=== PATIENT | male | born 1985 | race Two or more races ===

== ENCOUNTER 2025-03-25 13:04 | Inpatient (IN) | payer MEDICAID ==
[~2025-03-25] VITALS: Ht 177.8 cm; Wt 107.7 kg
[2025-03-25 13:42] LABS: BASOPHILS % (AUTO) 0.5 % (0-1); EOSINOPHILS % (AUTO) 0.5 % (0-6); HEMATOCRIT 43.4 % (42.0-52.0); HEMOGLOBIN 15.6 g/dl (14.0-17.9); LYMPHOCYTES # (AUTO) 1.4 X10'3 (1.1-4.8); LYMPHOCYTES % (AUTO) 24.5 % (21-51); MEAN CORPUSCULAR HEMOGLOBIN 32.5 PG (27.0-31.0); MEAN CORPUSCULAR HGB CONC 35.9 g/dL (33.0-36.5); MEAN CORPUSCULAR VOLUME 90.5 FL (78-98); MEAN PLATELET VOLUME 9.6 FL (7.4-10.4); MONOCYTES # (AUTO) 0.4 X10'3 (0-0.9); MONOCYTES % (AUTO) 6.2 % (2-12); NEUTROPHILS % (AUTO) 68.3 % (42-75); PLATELET COUNT 147 X10'3 (140-440); RED CELL DISTRIBUTION WIDTH 13.8 % (11.5-14.5); WHITE BLOOD COUNT 5.9 X10'3 (4.5-11.0)
[2025-03-25 14:07] LABS: ALANINE AMINOTRANSFERASE 133 U/L (12-78); ALBUMIN 3.5 G/DL (3.4-5.0); ALKALINE PHOSPHATASE 152 IU/L (46-116); ANION GAP 17 (8-16); ASPARTATE AMINO TRANSFERASE 301 U/L (10-37); BLOOD UREA NITROGEN 28 MG/DL (7-18); BUN/CREATININE RATIO 14.4 (10.0-20.0); CALCIUM 8.2 MG/DL (8.5-10.1); CHLORIDE 99 MMOL/L (99-107); CREATININE 1.94 MG/DL (0.60-1.10); GLUCOSE 221 MG/DL (70-104); LIPASE 115 U/L (16-77); POTASSIUM 3.9 MMOL/L (3.5-5.1); SODIUM 137 MMOL/L (135-145); TOTAL CARBON DIOXIDE 20.6 MMOL/L (24-32); eCRCL 52 ML/MIN; eGFR 39 ML/MIN
--- NOTE | 2025-03-25 14:08 | Physician Documentation ---
History of Present Illness General Chief Complaint: Diabetic Complication Stated Complaint: WANTS TO CHECK BLOOD SUGARS Time Seen by MD: 13:46 Mode of Arrival: POV History of Present Illness Initial Comments The patient is a 39-year-old male with a history of insulin-dependent diabetes and a seizure disorder. He takes 31 units of long-acting insulin and a sliding scale of regular. He is also on levetiracetam. 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 For the past week he has felt a little lightheaded has been suffering from nausea, vomiting and diarrhea. He has not passed any blood. He reports that his glucose levels have been on the low side at home (60s and 70s). The patient is from [place] and came here to work. He was planning on going back to [place] when his symptoms caused him to come here. Medication Reconciliation Allergies: Coded Allergies: alprazolam (Unverified Allergy, Mild, hives, 03/25/25) Review of Systems ROS Constitutional: Denies chills, fatigue, fever, weight gain or weight loss. HEENT: Denies hearing loss, sinus pressure or visual changes. Respiratory: Denies cough, shortness of breath or wheezing. Cardiovascular: Denies chest pain, pain while walking (claudication), edema or palpitations. Gastrointestinal: Nausea, vomiting and diarrhea Genitourinary: Denies painful urination (dysuria), excessive amount of urine (polyuria) or urinary frequency. Metabolic/Endocrine: Denies cold intolerance, heat intolerance, excessive thirst (polydipsia) or excessive hunger (polyphagia). Neurological: Denies dizziness, extremity numbness, extremity weakness, headaches, seizures or tremors. Psychiatric: Denies anxiety or depression. Integumentary: Denies breast discharge, breast lump, hives, mole change(s), rash or skin lesion. Musculoskeletal: Denies back pain, joint pain, joint swelling or neck pain. Hematologic: Denies easily bleeding, easily bruises, lymphedema or issues with blood clots. Immunologic: Denies food allergies or seasonal allergies. Physical Exam Physical Exam Vital Signs: Temperature: 98.1, Source: Oral, Heart Rate: 116, Respiratory Rate: 16, BP: 151/94, Pulse Oximetry: 94, Weight: 107.700 Oxygen Flow Rate: 0 Physical Exam Physical Exam Vitals and nursing note reviewed. Constitutional: General: Patient is awake, alert, oriented x 4 in no acute distress and well appearing. Speech is clear and lucid. Appearance: Normal appearance. Patient is not ill-appearing, toxic-appearing or diaphoretic. HENT: Head: Normocephalic and atraumatic. Mouth/Throat: Mouth: Mucous membranes are moist. Pharynx: Oropharynx is clear. Eyes: General: No scleral icterus. Extraocular Movements: Extraocular movements intact. Pupils: Pupils are equal, round, and reactive to light. Cardiovascular: Rate and Rhythm: Normal rate and regular rhythm. Heart sounds: No murmur heard. Pulmonary: Effort: No respiratory distress. Breath sounds: No wheezing, rhonchi or rales. Abdominal: General: There is no distension. Palpations: There is no fluid wave, hepatomegaly or mass. Tenderness: There is no abdominal tenderness. There is no guarding. Musculoskeletal: General: No swelling or deformity. Skin: Coloration: Skin is not jaundiced. Findings: No erythema or rash. Neurological: Mental Status: Patient is alert. Progress Results/Orders Results/Orders Orders - GARIMA JESUS MD Urinalysis, Cult If Indicated (03/25/25 13:12) Normal Saline 1000ml (Sodium Chloride 10 (03/25/25 15:40) * Bladder Scan / Post Residual (03/25/25 15:37) Page Hospitalist (03/25/25 15:45) Lactic,2hr (03/25/25 15:47) Completed Orders - GARIMA JESUS MD Cbc/Diff (03/25/25 13:12) BMP (03/25/25 13:12) Lipase (03/25/25 13:12) CMP (03/25/25 13:12) LA (03/25/25 14:02) MG (03/25/25 13:25) Vital Signs 03/25/25 13:06 Temp 98.1 Pulse 116 Resp 16 B/P (MAP) 151/94 Pulse Ox 94 O2 Flow Rate 0 Laboratory Tests Test 03/25/25 13:09 03/25/25 13:25 03/25/25 14:12 Glucometer 239 H White Blood Count 5.9 Red Blood Count 4.80 Hemoglobin 15.6 Hematocrit 43.4 Mean Corpuscular Volume 90.5 Mean Corpuscular Hemoglobin 32.5 H Mean Corpuscular Hemoglobin Concent 35.9 Red Cell Distribution Width 13.8 Platelet Count 147 Mean Platelet Volume 9.6 Neutrophils (%) (Auto) 68.3 Lymphocytes (%) (Auto) 24.5 Monocytes (%) (Auto) 6.2 Eosinophils (%) (Auto) 0.5 Basophils (%) (Auto) 0.5 Neutrophils # (Auto) 4.0 Lymphocytes # (Auto) 1.4 Monocytes # (Auto) 0.4 Eosinophils # (Auto) 0.0 Basophils # (Auto) 0.0 CBC Comment Sodium Level 137 Potassium Level 3.9 Chloride Level 99 Carbon Dioxide Level 20.6 L Anion Gap 17 H Blood Urea Nitrogen 28 H Creatinine 1.94 H Estimated GFR/1.73 m2 39 BUN/Creatinine Ratio 14.4 Glucose Level 221 H Calcium Level 8.2 L Magnesium Level 2.1 Total Bilirubin 4.6 H Aspartate Amino Transf (AST/SGOT) 301 H Alanine Aminotransferase (ALT/SGPT) 133 H Alkaline Phosphatase 152 H Total Protein 7.3 Albumin 3.5 Globulin 3.8 Albumin/Globulin Ratio 0.9 L Lipase 115 H Chemistry Comments Lactic Acid Level 2.9 H Medical Decision Making Findings This 39-year-old man with a history of insulin-dependent diabetes and seizure disorder chain to [place] in order to work (he is from [place]). He was working in the heat and felt that he became dehydrated over the past week or so. He shows evidence of acute kidney injury and dehydration. I do not feel he is septic. I am hydrating him and will get him admitted. Departure Disposition: ADMITTED INPATIENT Impression: Primary Impression: JORDON (acute kidney injury) Additional Impressions: Dehydration after exertion Acute hyperglycemia Condition: Stable Referrals: NO PRIMARY CARE PROVIDER (PCP) Signature Scribe Signature: . Attestation: . GARIMA JESUS MD Mar 25, 2025 14:08
[2025-03-25 14:11] LABS: ALBUMIN/GLOBULIN RATIO 0.9 (1.1-1.5); BILIRUBIN,TOTAL 4.6 MG/DL (0.1-1.0); TOTAL PROTEIN 7.3 G/DL (6.4-8.2)
[2025-03-25 14:24] LABS: MAGNESIUM 2.1 MG/DL (1.5-2.4)
[2025-03-25] MEDS ORDERED: HYDROcodone/acetaminophen 5mg/325mg tablet PO PRN (15:55)
[2025-03-25] MEDS ORDERED: HYDROcodone/acetaminophen 10/325mg tab PO PRN (15:55)
[2025-03-25] MEDS ORDERED: magnesium sulf-water 2g/50mL 50 ML IV PRN (15:55)
[2025-03-25] MEDS ORDERED: potassium Cl 20 mEq SR tablet PO PRN (15:55)
[2025-03-25] MEDS ORDERED: magnesium hydroxide 30ml (MOM) UD suspension PO PRN (15:55)
[2025-03-25] MEDS ORDERED: ondansetron 4mg rapidly disintigrating tab PO PRN (15:55)
[2025-03-25] MEDS ORDERED: morphine 2 MG/ML inj. syringe IV PRN ×2 (15:55)
[2025-03-25] MEDS ORDERED: potassium Cl 40MEQ/1/2NS 520ml 520 ML IV PRN (15:55)
[2025-03-25] MEDS ORDERED: acetaminophen 325mg tablet PO PRN ×2 (15:55)
[2025-03-25] MEDS ORDERED: ondansetron/PF 4mg/2ml inj IV PRN (15:55)
[2025-03-25] MEDS ORDERED: mag hydrox/Alum hydrox/simeth 30ml oral suspension PO PRN (15:55)
[2025-03-25] MEDS ORDERED: magnesium sulf-water 4G/100mL 100 ML IV PRN (15:55)
[2025-03-25] MEDS: normal saline 1000ml 1,000 ML IV ONE ×2 (15:59→17:43)
[2025-03-25] MEDS ORDERED: glucagon, human recombinant 1mg kit SUBCUT PRN (16:00)
[2025-03-25] MEDS ORDERED: DEXTROSE 15 GM of carb/4 tabs (each vial/BOTTLE has 4 tablets) PO PRN ×2 (16:00)
[2025-03-25] MEDS ORDERED: dextrose 50%-water 50ml dispensing syringe IV PRN ×2 (16:00)
[2025-03-25] MEDS ORDERED: normal saline 1000ml 1,000 ML IV ONE (16:40)
[2025-03-25] MEDS ORDERED: ringers solution, lacted 1,000 ML IV PRN ×2 (16:45)
[2025-03-25] MEDS: INSULIN LISPRO 100 UNIT/ML INSULN.PEN MULTI-DOSE SQ SCH (16:45)
--- NOTE | 2025-03-25 16:47 | HISTORY AND PHYSICAL ---
History & Physical Providers to CC ~ History of Present Illness Reason for Admit\Complaint: sepsis History of Present Illness Saulo Scott is a 39-year-old male with past medical history of IDDM, hyperlipidemia, seizure disorder who presented to the ED with chief complaint of generalized weakness, lightheadedness, intermittent n/v/d x 1 week. Patient states he came to [place] temporarily for his work. 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 Patient denies prior renal insufficiency, ID/CAD, CVA, cardiac arrhythmia, DVT/PE, or GIB. Patient denies chest pain, palpitations, shortness of breath, abdominal pain, fever, chills, dysuria, alcoholism. Initial diagnostic findings were notable for elevated lactic acid, tachycardia, profound renal insufficiency, transaminitis, with elevated t.bili, elevated ethyl alcohol. Patient is to be admitted for further workups and treatment. Allergies: Coded Allergies: alprazolam (Unverified Allergy, Mild, hives, 03/25/25) Past Medical History Past Medical History IDDM Seizures Hyperlipidemia Past Surgical History Surgical History Comment Denies Past Social History Social History Comment Alcohol: Occasionally Tobacco: Current smoker, 20 pack year history Illicit drug use: Denies Living situation: Lives at home alone ROS ROS Other than positives in HPI, all 14 review of systems are negative Exam Vitals: Vital Signs Date Time Temp Pulse Resp B/P (MAP) Pulse Ox O2 Delivery O2 Flow Rate FiO2 03/25/25 13:06 98.1 116 16 151/94 94 0 General: Generalized weakness, A&Ox 3, NAD HEENT: Normocephalic, PERRLA Neck: Supple, trachea midline, no JVD Chest: Clear to auscultation bilaterally Cardiovascular: RRR, S1&S2 Abdomen: Soft and nontender Extremities: No cyanosis/clubbing/or edema Central Nervous System: CN II-XII intact, no focal deficits Musculoskeletal: No paraspinal muscle tenderness, no muscle spasm Skin: Warm and intact Diagnostic Data Last Recorded Lab Results: 03/25/25 1325 03/25/25 1325 Counseling Services Smoking & Tobacco Cessation: > 10 Minutes Additional Plan # Prerenal JORDON likely 2/2 prolonged dehydration/vasomotor nephropathy # Metabolic acidosis # Alcohol intoxication # Transaminitis -elevated lactic acid, bicarb 20, ketouria, lipase 115, serum LDH 596, Cr 1.94, GFR 39 BUN/Cr 14, elevated ethyl alcohol -t.bili 4.6, ast/alt/alp elevated showing cholestasis pattern, patient denies abdominal pain, no signs of alcohol withdrawal -alcohol withdrawal protocol, thiamine, folic acid, 3L bolus IVF followed by continuous LR, start Zosyn -follow repeat lactic acid, CT abdomen/pelvis w/o contrast for now given JORDON, UA, blood culture, urine lytes # IDDM # HLD # HTN -on home Lantus 31 units, start with 15 unit Lantus and supplemental; hyperglycemic/hypoglycemic protocol -A1c 7.7%, LDL 77, Triglycerides 324, start statin, omega3, amlodipine # Seizure disorder -pending med rec # Nicotine dependence -nicotine patch DVT/VTE prophylaxis: Heparin Code status: Full code I spent a total of 16 minutes on smoking cessation education. I provided extensive counseling regarding smoking cessation. I spent a total of 35 minutes discussing Advanced Care Planning measures with the patient. Advance care planning: Discussed with patient the importance of advance care planning in case of emergent situation. We discussed various resuscitative measures/ ACP with the patient at the time of admission. Patient voiced understanding and patient has decided on a full code status. Date of Service: Mar 25, 2025 Billing Provider: ELÍAS SCHILLING Common Visit Codes: [id number] INP/OBS CARE (HIGH) Secondary Visit Codes: 41914-YTNZW CHNG SMOKING >10MIN, [id number] CARE PLAN 30 MINUTES ELÍAS SCHILLING Mar 25, 2025 16:47
[2025-03-25] MEDS: ringers solution, lacted 1,000 ML IV SCH (16:48)
[2025-03-25] MEDS: CefTRIAXone 2gm/D5W 50ml BAG 50 ML IV ONE (16:48)
[2025-03-25] MEDS: nicotine 14mg patch - 24hr TD ONE (16:49)
--- NOTE | 2025-03-25 17:00 | RADIOLOGY REPORT ---
CHEST RADIOGRAPH Indication: sepsis Technique: Single frontal view of the chest was obtained Comparison: None FINDINGS: Lines and Tubes: None Lungs and Pleura: 8 mm opacity is noted in the right middle lung zone. No focal consolidation. No ef fusion. No pneumothorax. Cardiomediastinal contours: Unremarkable Bones: No acute osseous abnormality. IMPRESSION: No acute cardiopulmonary disease. 8 mm opacity noted in the right middle lung zone, favored to represent a pulmonary vessel, however ca n not exclude pulmonary nodule. Can consider follow-up chest CT if clinically indicated.
[2025-03-25 17:02] LABS: MAGNESIUM 2.1 MG/DL (1.5-2.4); POTASSIUM 3.9 MMOL/L (3.5-5.1)
[2025-03-25 17:04] LABS: HEMOGLOBIN A1C 7.7 % (4.5-6.2)
[2025-03-25 17:06] LABS: HDL CHOLESTEROL 43 MG/DL (35-60); LACTATE DEHYDROGENASE 596 U/L (85-227); LDL CHOLESTEROL 77 MG/DL (50-100)
[2025-03-25 17:15] LABS: CHOLESTEROL 173 MG/DL (0-200); TRIGLYCERIDES 324 MG/DL (20-135)
[2025-03-25] MEDS ORDERED: hydrALAZINE 20mg/ml inj. IV PRN (17:40)
[2025-03-25] MEDS: amLODIPine 5mg tablet PO ONE (17:40)
[2025-03-25] MEDS ORDERED: oxyCODONE IR 5mg (immed. release) tablet PO PRN (17:40)
[2025-03-25 17:48] LABS: BILIRUBIN,URINE SMALL (Neg); CLARITY,URINE CLEAR (Clear); COLOR,URINE YELLOW (Yellow); GLUCOSE, URINE 100 mg/dl (Neg); KETONES,URINE 15 mg/dl (Neg); LEUKOCYTE ESTERASE ,URINE NEGATIVE (Neg); NITRITES, URINE NEGATIVE (Neg); OCCULT BLOOD,URINE LARGE (Neg); PROTEIN,URINE >=300 mg/dl (Neg); UA COLLECTION TYPE VOIDED
--- NOTE | 2025-03-25 17:48 | ELECTROCARDIOGRAPH REPORT ---
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
[2025-03-25 17:54] LABS: HYALINE CASTS 0-3 /LPF (NEGATIVE)
[2025-03-25] MEDS ORDERED: normal saline 1000ml 1,000 ML IV SCH (18:00)
[2025-03-25] MEDS: diatr meglu/diatrizoate 30ml oral sol.-(3 dose) bottle PO SCH (18:00)
[2025-03-25 18:02] LABS: FINE GRANULAR CAST 0-3 /LPF (NEGATIVE)
[2025-03-25 18:06] LABS: AMORPHOUS URATES 2+; BACTERIA,URINE FEW /HPF (Neg); RBC,URINE NONE SEEN /HPF (0-2); SQUAMOUS EPITHELIAL CELL,UR FEW /LPF (FEW); WBC,URINE 0-4 /HPF (0-4)
[2025-03-25 18:07] LABS: MUCUS STRANDS FEW /LPF (Neg)
[2025-03-25 18:09] LABS: CELLULAR CAST 0-4 /LPF (NEGATIVE)
[2025-03-25] MEDS: piperacillin/tazo 3.375gm/50ml 50 ML IV SCH (18:58)
[2025-03-25 19:50] VITALS: BP 125/80; PULSE 102; RESP 20; TEMP 97.9; O2SAT 96
[2025-03-25 19:57] LABS: ETHANOL 275 MG/DL (<10)
[2025-03-25] MEDS: heparin, porcine 5000 units/ml vial SQ SCH (20:00)
[2025-03-25] MEDS: K and/or MAG REPLACEMENT MC SCH (20:00)
[2025-03-25] MEDS ORDERED: LORazepam 1 MG tablet PO PRN (20:25)
[2025-03-25] MEDS ORDERED: haloperidol lactate 5mg/ml inj IM PRN ×2 (20:25→20:35)
[2025-03-25] MEDS ORDERED: LORazepam 2 mg/ml vial IV PRN ×2 (20:25→20:35)
[2025-03-25] MEDS ORDERED: haloperidol 5mg tablet PO PRN ×2 (20:25→20:35)
[2025-03-25] MEDS ORDERED: LEVE500T PO (20:44)
[2025-03-25] MEDS ORDERED: LANTUS SUBCUT (20:44)
[2025-03-25] MEDS ORDERED: GABA-1405 PO (20:44)
[2025-03-25] MEDS ORDERED: INSU100C4 SQ (20:44)
[2025-03-25] MEDS ORDERED: ALOG25TA PO (20:44)
[2025-03-25] MEDS ORDERED: SPIR50TA5 PO (20:44)
[2025-03-25] MEDS ORDERED: LISI20TA28 PO (20:44)
[2025-03-25] MEDS ORDERED: ERGO500041 PO (20:44)
[2025-03-25] MEDS ORDERED: FLUO20CA39 PO (20:44)
[2025-03-25 20:45] VITALS: RESP 16; O2SAT 96
[2025-03-25] MEDS ORDERED: thiamine 100mg/ml 2ml inj. IV SCH (21:00)
[2025-03-25] MEDS: levetiracetam 250mg tablet PO ONE (21:20)
[2025-03-25] MEDS: docusate sod 100mg capsule PO SCH (21:21)
[2025-03-25] MEDS: atorvastatin 20mg tablet PO SCH (21:21)
[2025-03-25] MEDS: thiamine 100mg/ml 2ml inj. IM STA (21:22)
[2025-03-25] MEDS: insulin glargine (Lantus) pen - multi-dose SQ SCH (21:39)
[2025-03-25 22:00] VITALS: BP 111/58; PULSE 101; RESP 18; TEMP 98.2; O2SAT 93
--- NOTE | 2025-03-26 02:39 | RADIOLOGY REPORT ---
Exam: CT CT ABDOMEN PELVIS History: pancreatitis, transaminitis, elevated t.bili, elevated ldh Comparison Study: None Technique: Multidetector spiral CT of the abdomen was performed from lung bases to pubic symphysis. I maging was performed without IV contrast. Axial, coronal and sagittal multiplanar reformats were obta ined from the axial data set by the technologist. Radiation Dose : 1. Abdomen/Pelvis: CTDIvol 32.52 mGy, DLP 1644.65 mGy*cm. Findings: Evaluation of solid organs is limited due to lack of intravenous contrast use. Lung Bases: No acute or significant lung base finding. Normal heart size. No pleural or pericardial effusion. Liver: The liver is normal in size and subsequent lobulated in its surface morphology, suggestive of cirrhotic change. Moderate diffuse hepatic steatosis. No focal lesions. Gallbladder and Biliary Tree: The gallbladder is moderately distended with sludge. Spleen: Unremarkable Pancreas: The pancreas is grossly normal in appearance. Adrenal Glands: Unremarkable Kidneys: Kidneys are grossly normal without calculi or hydronephrosis. Bladder: Grossly unremarkable for degree of distention. Bowel: The stomach is grossly normal in appearance. Small bowel and colon are normal in caliber and d istribution. The appendix is normal. Ascites: Absent Lymphadenopathy: No mesenteric, retroperitoneal or periportal lymphadenopathy. Abdominal Wall and Mesentery: Unremarkable. Vasculature: The visualized abdominal aorta is normal in size and caliber. Atherosclerotic vascular c alcifications. Evaluation of abdominal and pelvic vessels is limited due to lack of intravenous contr ast. Pelvic Organs: Unremarkable Musculoskeletal: No aggressive focal bony lesions, acute fractures or dislocation. IMPRESSION: 1. No acute abdominal or pelvic findings. 2. Hepatic steatosis and cirrhotic hepatic morphology. 3. Gallbladder distention and sludge. Radiation optimization: All CT scans at this facility use at least one of these dose optimization erika hniques: automated exposure control mA and/or kV adjustment per patient size (includes targeted exam s where dose is matched to clinical indication) or iterative reconstruction.
[2025-03-26] MEDS: thiamine 100mg/ml 2ml inj. IV SCH (05:42)
[2025-03-26 06:00] VITALS: BP 103/61; PULSE 90; RESP 19; TEMP 97.6; O2SAT 95
[2025-03-26 06:20] LABS: BASOPHILS % (AUTO) 0.2 % (0-1); EOSINOPHILS # (AUTO) 0.1 X10'3 (0-0.9); EOSINOPHILS % (AUTO) 2.6 % (0-6); HEMATOCRIT 38.2 % (42.0-52.0); HEMOGLOBIN 13.3 g/dl (14.0-17.9); LYMPHOCYTES # (AUTO) 0.8 X10'3 (1.1-4.8); LYMPHOCYTES % (AUTO) 18.8 % (21-51); MEAN CORPUSCULAR HEMOGLOBIN 31.6 PG (27.0-31.0); MEAN CORPUSCULAR HGB CONC 34.9 g/dL (33.0-36.5); MEAN CORPUSCULAR VOLUME 90.6 FL (78-98); MEAN PLATELET VOLUME 9.8 FL (7.4-10.4); MONOCYTES # (AUTO) 0.3 X10'3 (0-0.9); MONOCYTES % (AUTO) 6.6 % (2-12); NEUTROPHILS # (AUTO) 3.2 X10'3 (1.8-7.7); NEUTROPHILS % (AUTO) 71.8 % (42-75); PLATELET COUNT 102 X10'3 (140-440); RED BLOOD COUNT 4.22 X10'6 (4.70-6.10); RED CELL DISTRIBUTION WIDTH 13.3 % (11.5-14.5); WHITE BLOOD COUNT 4.4 X10'3 (4.5-11.0)
[2025-03-26] MEDS: folic acid 1mg/0.2ml inj IV SCH (07:19)
[2025-03-26] MEDS: multivitamins, therapeutics tablet PO SCH (07:19)
[2025-03-26] MEDS: nicotine 14mg patch - 24hr TD SCH (07:20)
[2025-03-26] MEDS: levetiracetam 250mg tablet PO SCH (07:23)
[2025-03-26 07:30] LABS: ALANINE AMINOTRANSFERASE 118 U/L (12-78); ALBUMIN 2.5 G/DL (3.4-5.0); ALBUMIN/GLOBULIN RATIO 0.8 (1.1-1.5); ALKALINE PHOSPHATASE 201 IU/L (46-116); ANION GAP 10 (8-16); ASPARTATE AMINO TRANSFERASE 256 U/L (10-37); BILIRUBIN,TOTAL 3.4 MG/DL (0.1-1.0); BLOOD UREA NITROGEN 25 MG/DL (7-18); BUN/CREATININE RATIO 18.4 (10.0-20.0); CALCIUM 7.6 MG/DL (8.5-10.1); CHLORIDE 103 MMOL/L (99-107); CREATININE 1.36 MG/DL (0.60-1.10); GLUCOSE 143 MG/DL (70-104); MAGNESIUM 1.9 MG/DL (1.5-2.4); POTASSIUM 3.3 MMOL/L (3.5-5.1); SODIUM 137 MMOL/L (135-145); TOTAL CARBON DIOXIDE 23.8 MMOL/L (24-32); TOTAL PROTEIN 5.6 G/DL (6.4-8.2); eCRCL 75 ML/MIN; eGFR 58 ML/MIN
[2025-03-26] MEDS ORDERED: levetiracetam 250mg tablet PO SCH (08:00)
[2025-03-26] MEDS ORDERED: CefTRIAXone 2gm/D5W 50ml BAG 50 ML IV SCH (08:00)
[2025-03-26 08:35] LABS: PROTHROMBIN TIME 10.4 SECONDS (9.0-12.0)
[2025-03-26 09:04] LABS: TOTAL PROTEIN,URINE RANDOM 242.8 MG/DL
[2025-03-26 10:00] VITALS: BP 114/63; PULSE 93; RESP 14; TEMP 97.9; O2SAT 94
[2025-03-26] MEDS: potassium Cl 20 mEq SR tablet PO PRN (10:22)
[2025-03-26] MEDS: ringers solution, lacted 1,000 ML IV ONE ×2 (10:23→15:18)
[2025-03-26] MEDS: ringers solution, lacted 1,000 ML IV SCH (10:23)
--- NOTE | 2025-03-26 12:59 | PROGRESS NOTE ---
Daily Progress Note Providers to CC ~ Antibiotic Timeout Antibiotic Ordered?: Yes Subjective No acute events overnight. Patient examined at bedside. No new complaints, not in acute distress. Patient denies chest pain, sob, palpitations, abdominal pain, n/v/d. Vss, labs notable for normalized lactic acid, Cr downtrending, transaminitis improving. CT shows cirrhosis, gallbladder decision and no acute abdominal or pelvic findings, no ascites. MRCP to follow. 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: CN II-XII intact, no focal deficits Musculoskeletal: No paraspinal muscle tenderness, no muscle spasm Skin: Warm and intact Coagulation Studies Laboratory Tests Test 03/26/25 07:55 Prothrombin Time 10.4 SECONDS (9.0-12.0) INR International Normalized Ratio 1.0 INR Coagulation Comments Problem\Assessment\Plan # Prerenal JORDON likely 2/2 prolonged dehydration/vasomotor nephropathy # Metabolic acidosis # Alcohol intoxication # Cirrhosis # Transaminitis -elevated lactic acid, bicarb 20, ketouria, lipase 115, serum LDH 596, Cr 1.94, GFR 39 BUN/Cr 14, elevated ethyl alcohol -t.bili 4.6, ast/alt/alp elevated showing cholestasis pattern, patient denies abdominal pain, no signs of alcohol withdrawal -alcohol withdrawal protocol, thiamine, folic acid, 3L bolus IVF followed by continuous LR, start Zosyn -follow repeat lactic acid, CT abdomen/pelvis w/o contrast for now given JORDON, UA, blood culture, urine lytes, hepatitis panel -03/26: Cr downtrending, transaminitis improving, CT shows cirrhosis, gallbladder decision and no acute abdominal or pelvic findings, no ascites; follow MRCP # IDDM # HLD # HTN -on home Lantus 31 units, start with 15 unit Lantus and supplemental; hyperglycemic/hypoglycemic protocol -A1c 7.7%, LDL 77, Triglycerides 324, start statin, omega3, amlodipine # Seizure disorder -continue home Keppra 1000mg bid # Nicotine dependence -nicotine patch DVT/VTE prophylaxis: Heparin Code status: Full code Date of Service: Mar 26, 2025 Billing Provider: ELÍAS SCHILLING Common Visit Codes: [id number] INP/OBS CARE(HIGH) ELÍAS SCHILLING Mar 26, 2025 12:59
--- NOTE | 2025-03-26 13:51 | RADIOLOGY REPORT ---
INDICATION: transaminitis, gallbladder sludge/distention, cirrhosis TECHNIQUE: Multiple real-time sonographic images of the abdomen were obtained. COMPARISON: CT abdomen/ pelvis 03/25/2025 FINDINGS: Liver demonstrates increased coarse echogenicity and a nodular contour. Hepatopetal flow in the wade l vein. The liver measures 16.5 cm. No intrahepatic biliary ductal dilatation is noted. The gallbladder is partially distended with intraluminal sludge. No discrete gallstones are seen. Th e gallbladder wall thickness measures 4 mm. No evidence of pericholecystic fluid. Negative sonograph ic martin's sign. The common duct measures 0.7 cm and is unremarkable. The right kidney measures 11.3 cm. No hydronephrosis. The pancreas is not well visualized due to obscuration from bowel gas. The visualized portions of the IVC and aorta are grossly unremarkable. IMPRESSION: 1. Biliary sludge and mild nonspecific gallbladder wall thickening (4 mm). There is no cholelithiasis and no other signs to suggest cholecystitis. 2. Borderline common bile duct dilation. This may be upper limits of normal with obstruction consider ed less likely. Clinical correlation recommended. 3. Hepatic steatosis and cirrhotic hepatic morphology.
[2025-03-26 18:00] VITALS: BP_SYST 130; BP_SYST 88; BP_DIAS 47; BP_DIAS 83; PULSE 106; PULSE 90; RESP 16; RESP 20; TEMP 100.1; TEMP 98.3; O2SAT 98; O2SAT 99
[2025-03-26 20:00] VITALS: RESP 15; O2SAT 96
[2025-03-26] MEDS: insulin glargine (Lantus) pen - multi-dose SQ SCH (20:44)
[2025-03-26 22:00] VITALS: BP 117/72; PULSE 86; RESP 16; TEMP 97.6; O2SAT 94
[2025-03-27 06:00] VITALS: BP 120/69; PULSE 79; RESP 16; TEMP 97.7; O2SAT 93
[2025-03-27 06:22] LABS: BASOPHILS % (AUTO) 0.3 % (0-1); EOSINOPHILS # (AUTO) 0.2 X10'3 (0-0.9); EOSINOPHILS % (AUTO) 5.7 % (0-6); HEMATOCRIT 37.2 % (42.0-52.0); HEMOGLOBIN 13.1 g/dl (14.0-17.9); LYMPHOCYTES % (AUTO) 27.6 % (21-51); MEAN CORPUSCULAR HEMOGLOBIN 32.3 PG (27.0-31.0); MEAN CORPUSCULAR HGB CONC 35.2 g/dL (33.0-36.5); MEAN CORPUSCULAR VOLUME 91.9 FL (78-98); MEAN PLATELET VOLUME 9.9 FL (7.4-10.4); MONOCYTES # (AUTO) 0.2 X10'3 (0-0.9); MONOCYTES % (AUTO) 6.6 % (2-12); NEUTROPHILS # (AUTO) 2.1 X10'3 (1.8-7.7); NEUTROPHILS % (AUTO) 59.8 % (42-75); PLATELET COUNT 93 X10'3 (140-440); RED BLOOD COUNT 4.05 X10'6 (4.70-6.10); RED CELL DISTRIBUTION WIDTH 13.4 % (11.5-14.5); WHITE BLOOD COUNT 3.5 X10'3 (4.5-11.0)
[2025-03-27 06:50] LABS: ALANINE AMINOTRANSFERASE 87 U/L (12-78); ALBUMIN 2.2 G/DL (3.4-5.0); ALKALINE PHOSPHATASE 154 IU/L (46-116); ANION GAP 7 (8-16); ASPARTATE AMINO TRANSFERASE 144 U/L (10-37); BILIRUBIN,TOTAL 4.8 MG/DL (0.1-1.0); BLOOD UREA NITROGEN 16 MG/DL (7-18); BUN/CREATININE RATIO 13.3 (10.0-20.0); CALCIUM 7.4 MG/DL (8.5-10.1); CHLORIDE 106 MMOL/L (99-107); GLUCOSE 114 MG/DL (70-104); MAGNESIUM 1.6 MG/DL (1.5-2.4); POTASSIUM 3.6 MMOL/L (3.5-5.1); SODIUM 140 MMOL/L (135-145); TOTAL CARBON DIOXIDE 26.9 MMOL/L (24-32); eCRCL 84 ML/MIN; eGFR 67 ML/MIN
[2025-03-27 06:56] LABS: ALBUMIN/GLOBULIN RATIO 0.8 (1.1-1.5)
[2025-03-27 10:00] VITALS: BP 125/83; PULSE 74; RESP 16; TEMP 98.3; O2SAT 96
--- NOTE | 2025-03-27 11:50 | RADIOLOGY REPORT ---
MRI Abdomen, without IV Contrast Exam Date: 03/27/2025 09:51 AM Comparison: CT dated 03/25/2025 History: dilated CBD, elevated lipase, cholestasis pattern Technique: Axial and coronal T2 fat sat images obtained. Findings: Liver: Nodular hepatic contour suggestive of hepatic cirrhosis. Spleen: Unremarkable. Pancreas: The pancreas is normal in appearance without focal lesions. Gallbladder and ducts: Gallbladder is normal in appearance. The cystic duct, right and left hepatic d ucts, common hepatic duct, and common bile ducts are unremarkable. The pancreatic duct is within nor mal limits. Adrenal glands: Unremarkable. Kidneys: Normal enhancement without suspicious lesions or hydronephrosis. Visualized bowel: Grossly unremarkable. Vasculature: Numerous upper abdominal varices are present suggestive of portal hypertension. Lymphadenopathy: No evidence for lymphadenopathy. Ascites: Absent. Musculoskeletal: Bone marrow signal is normal. IMPRESSION: Extremely limited examination as only axial and coronal T2 sequences performed. Findings are suggestive of hepatic cirrhosis and portal hypertension. Gallbladder and common bile duct appear within normal limits.
[2025-03-27] MEDS ORDERED: ATOR20TA66 PO (12:23)
[2025-03-27] MEDS ORDERED: NOR5T PO (12:23)
[2025-03-27] MEDS ORDERED: LANTUS SUBCUT (12:23)
[2025-03-27] MEDS ORDERED: thiamine tablet PO (12:23)
[2025-03-27] MEDS ORDERED: FOLI1TAB27 PO (12:23)
[2025-03-27] MEDS ORDERED: PROP10TA10 PO (13:29)
[2025-03-27] MEDS: propranolol 10mg tablet PO ONE (14:02)
--- NOTE | 2025-03-27 14:39 | DISCHARGE SUMMARY ---
Discharge Summary Providers to CC ~ Discharge Summary Admission Diagnosis: JORDON Hospital Course DATE OF ADMISSION: 03/25/25 DATE OF DISCHARGE: 03/27/25 Discharge Diagnosis\Comment: Prerenal JORDON likely 2/2 dehydration/vasomotor nephropathy SIRS with acute organ dysfunction- POA Nephrotic syndrome Diabetic nephropathy Metabolic acidosis Alcohol intoxication Cirrhosis Portal hypertension Transaminitis Hyperglycemia IDDM Uncontrolled Diabetes HLD HTN Class I obesity Seizure disorder Nicotine dependence Vasomotor nephropathy- ruled in CBD obstruction- ruled out Operations\Procedures: None Consultants: None Complications: None Condition on DC: Stable New Medications: Lisinopril (Lisinopril) 2.5 Mg Tablet 1 TAB PO DAILY for 30 Days, #30 TAB 0 Refills Atorvastatin Calcium (Atorvastatin Calcium) 20 Mg Tablet 20 MG PO HS for 30 Days, #30 TAB Folic Acid* (Folic Acid*) Y Tab 1 MG PO DAILY for 30 Days, #30 TAB Propranolol Hcl* (Inderal*) 10 Mg Tablet 10 MG PO BID for 30 Days, #60 TAB [thiamine tablet] () 100 MG TABLET 100 MG PO DAILY for 30 Days, #30 Changed Medications: Insulin Glargine,Hum.rec.anlog* (Lantus*) 100 Unit/1 Ml Vial 15 UNITS SUBCUT HS for 30 Days, #5 ML (Changed from: 24 UNITS) Continued Medications: Alogliptin Benzoate (Nesina) 25 Mg Tablet 1 TAB PO DAILY for 30 Days, #30 TAB 0 Refills Ergocalciferol (Vitamin D2) (Vitamin D2) 1,250 Mcg (58288 Unit) Capsule 1 CAP PO Q7D for 28 Days, #4 CAP 0 Refills Fluoxetine Hcl* (Prozac*) 20 Mg Capsule 2 CAP PO DAILY for 30 Days, #30 CAP Gabapentin (Gabapentin) 600 Mg Tablet 0.5 TAB PO HS for 30 Days, #90 TAB 0 Refills Insulin Aspart (Novolog) 100 Unit/Ml Cartridge 100 UNIT SQ, UNIT Levetiracetam (Levetiracetam) 500 Mg Tablet 2 TAB PO Q12H for 30 Days, #60 TAB 0 Refills Discontinued Medications: Spironolactone (Spironolactone) 50 Mg Tablet 1 TAB PO DAILY for 30 Days, #30 TAB 0 Refills Discharge Summary: History of Present Illness Saulo Scott is a 39-year-old male with past medical history of IDDM, hyperlipidemia, seizure disorder who presented to the ED with chief complaint of generalized weakness, lightheadedness, intermittent n/v/d x 1 week. Patient states he came to [place] temporarily for his work. 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 Patient denies prior renal insufficiency, NE/CAD, CVA, cardiac arrhythmia, DVT/PE, or GIB. Patient denies chest pain, palpitations, shortness of breath, abdominal pain, fever, chills, dysuria, alcoholism. Initial diagnostic findings were notable for elevated lactic acid, tachycardia, profound renal insufficiency, transaminitis, with elevated t.bili, elevated ethyl alcohol. Patient is to be admitted for further workups and treatment. Hospital Course Initial diagnostic findings were notable for transaminitis with elevated t.bili, elevated lactic acid, lipase 115U/L, elevated serum LDH but less than 3x upper limit normal, severe renal insufficiency without known history of CKD, elevated ethyl alcohol level, hyperglycemia with serum glucose of 221 mg/dL, bicarb 20 mmol/L, sinus tachycardia in 110s. Pertinent negative findings were normal INR, no hypoglycemia, no leukocytosis, afebrile, unremarkable hemogram, negative urinaylsis for urinary tract infection, negative chest x-ray for acute cardiopulmonary disease, negative physical assessment of abdomen. CT abdomen/pelvis w/o contrast was done due to severe kidney injury on presentation. CT findings were notable for suspicion of cirrhosis, gallbladder distention and sludge, without acute abdominal or pelvic findings including hydronephrosis. Patient was treated with bolus intravenous lactated ringer followed by continuous fluids, empirical antibiotics, and insulin. Patient was started on alcohol withdrawal protocol and seizure precaution. A subsequent abdominal ultrasound reveales biliary sludge, mild nonspecific gallbladder wall thickening, and mild common bile duct dilation without evidence of cholelithiasis or other signs to suggest cholecystitis. Hence, patient underwent MRCP which revealed hepatic cirrhosis and portal hypertension with normal appear ing gallbladder and common bile duct along with unremarkable cystic duct, right and left hepatic ducts, common hepatic duct, pancreatic duct. Patient did not experience previously reported abdominal pain, nausea, vomiting upon presentation to the ED and tolerated diet well. Patient did not experience further complications throughout the entire hospital stay and made a good recovery. Patient was seen and examined on the day of discharge. On day of discharge, vss and labs notable for findings consistent with cirrhosis, normalized lactic acid, improving acute kidney injury. Preliminary blood cultures remain negative until the day of discharge and hepatitis panel pending. All labs, diagnostic workups, discharge plan discussed with patient in details during visit before discharge. All questions and concerns answered to the best of my professional knowledge. Patient is to be discharged to home to self and to follow-up with PCP within 2 weeks. 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
[2025-03-27] MEDS ORDERED: LISI2.5T14 PO (14:55)
[2025-03-27] MEDS ORDERED: propranolol 10mg tablet PO SCH (20:00)
[2025-03-27] MEDS ORDERED: LORazepam 2 mg/ml vial IV PRN (20:35)
[2025-03-27] MEDS ORDERED: LORazepam 1 MG tablet PO PRN (20:35)
[2025-03-28 08:45] LABS: HBSAG SCREEN Negative (Negative); HEP A AB, IGM Negative (Negative); HEP B CORE AB, IGM Negative (Negative); HEPATITIS C VIRUS ANTIBODY Non Reactive (Non Reactive)
[2025-03-29] MEDS ORDERED: thiamine 100mg tablet PO SCH (08:00)
[2025-03-30] MEDS ORDERED: folic acid 1mg tablet PO SCH (08:00)
== END 2025-03-27 15:10 | disposition home or self-care (01) | DRG 422 ==
LOC: ER 13:06 → ED HOLD 15:59 → ORTHO 4S 19:57
PROVIDERS: ADMIT Nurse Practitioner Family; ATTEND Nurse Practitioner Family
DX: E86.0 Dehydration (principal); N17.0 Acute kidney failure with tubular necrosis; R65.11 Systemic inflammatory response syndrome (SIRS) of non-infectious origin with acute organ dysfunction; E87.20 Acidosis, unspecified; K83.8 Other specified diseases of biliary tract; K76.6 Portal hypertension; E11.21 Type 2 diabetes mellitus with diabetic nephropathy; E11.65 Type 2 diabetes mellitus with hyperglycemia; F10.129 Alcohol abuse with intoxication, unspecified; Y90.9 Presence of alcohol in blood, level not specified; I10 Essential (primary) hypertension; E66.811 Obesity, class 1; E78.5 Hyperlipidemia, unspecified; F17.210 Nicotine dependence, cigarettes, uncomplicated; G40.909 Epilepsy, unspecified, not intractable, without status epilepticus; K74.60 Unspecified cirrhosis of liver; Z79.4 Long term (current) use of insulin; Z71.6 Tobacco abuse counseling; Z88.8 Allergy status to other drugs, medicaments and biological substances; Z68.34 Body mass index [BMI] 34.0-34.9, adult
CPT/HCPCS: 36415; 71045; 74176; 74181; 76700; 80053; 80061; 80177; 80320; 81001; 82570; 82948; 83010; 83036; 83605; 83615; 83690; 83735; 84132; 84133; 84145; 84156; 84300; 84540; 85025; 85610; 86038; 86705; 86709; 86803; 87040; 87081; 87340; 87517; 87522; 93005; 96361; 96365; 96372; 97116; 97161; 99285; G0378; J0696; J1644; J1815; J2543; J3411; J3490; J7030; J7120